=== PATIENT | female | born 1975 | race Hispanic/Latino ===

== ENCOUNTER 2018-07-09 15:29 | Emergency (ER) | payer BC, OTHER ==
[2018-07-09] MEDS ORDERED: ACETAMINOPHEN 325 MG TAB ONE (16:04)
[2018-07-09] MEDS ORDERED: SODIUM CHLORIDE 0.9% 1000ML 1,000 ML IV ONE (16:04)
[2018-07-09] MEDS ORDERED: LEVOFLOXACIN 750 MG/D5W 150 ML 150 ML ONE (16:04)
[2018-07-09 16:37] LABS: BASOPHILS % (AUTO) 0.3 % (0.0-5.0); EOSINOPHILS % (AUTO) 2.5 % (0.0-8.0); HEMATOCRIT 41.4 % (36-48); LYMPHOCYTES % (AUTO) 14.4 % (21.0-51.0); MEAN CORPUSCULAR HEMOGLOBIN 27.3 pg (27.0-33.0); MEAN CORPUSCULAR HGB CONC 33.1 g/dL (32.0-36.0); MEAN CORPUSCULAR VOLUME 82.4 fL (79-99); MONOCYTES % (AUTO) 7.2 % (3.0-13.0); NEUTROPHILS % (AUTO) 75.6 % (40.0-77.0); PLATELET COUNT (AUTO) 192 K/uL (130-400); RED BLOOD CELL COUNT(AUTO) 5.02 MIL/uL (4.00-5.50); RED CELL DISTRIBUTION WIDTH 15.3 % (11.0-15.5); WHITE BLOOD COUNT (AUTO) 11.7 K/uL (4.8-10.8)
[2018-07-09 16:58] LABS: ALBUMIN 3.4 g/dL (3.5-5.0); BILIRUBIN,TOTAL 0.5 mg/dL (0.2-1.0); CREATININE 0.8 mg/dL (0.5-1.5); INR 0.92 (0.85-1.15); PARTIAL THROMBOPLASTIN TIME 24.6 SEC (26.3-35.5); PROTHROMBIN TIME 9.7 SEC (9.6-11.6); TOTAL PROTEIN, SERUM 7.5 g/dL (6.0-8.3)
[2018-07-09] MEDS ORDERED: INSULIN HUMULIN R 100 UNIT/ML 3ML ONE (17:31)
[2018-07-09 20:04] LABS: APPEARANCE,URINE CLOUDY (CLEAR); BILIRUBIN,URINE NEGATIVE (NEGATIVE); COLOR,URINE YELLOW (YELLOW); GLUCOSE, URINE (UA) >=1000 mg/dL (NEGATIVE); KETONES,URINE 15 mg/dL (NEGATIVE); LEUKOCYTE ESTERASE ,URINE TRACE (NEGATIVE); NITRATE,URINE POSITIVE (NEGATIVE); OCCULT BLOOD,URINE LARGE (NEGATIVE); PROTEIN,URINE 30 (NEGATIVE); UROBILINOGEN,URINE 0.2 mg/dL (0.2-1.0)
[2018-07-09 20:13] LABS: RBC,URINE 26-50 /HPF (0-1)
[2018-07-09 20:14] LABS: BACTERIA,URINE Few /HPF (None Seen); SQUAMOUS EPITHELIAL CELL,UR Rare /HPF (0-2)
[2018-07-09] MEDS ORDERED: KETOROLAC TROMETHAMINE 15MG/ML ONE (20:39)
[2018-07-09 21:11] LABS: HEMOGLOBIN A1C 11.7 % (4.0-6.0)
== END 2018-07-09 21:08 | disposition home or self-care (01) ==
LOC: EDH 15:29
DX: A41.9 Sepsis, unspecified organism (principal); R73.9 Hyperglycemia, unspecified; N39.0 Urinary tract infection, site not specified; Z88.1 Allergy status to other antibiotic agents; Z88.6 Allergy status to analgesic agent; Z90.49 Acquired absence of other specified parts of digestive tract
CPT/HCPCS: 36415; 74176; 80053; 81001; 82948 ×2; 83036; 83605; 84703; 85025; 85610; 85651; 85730; 87040 ×2; 87088; 87804 ×2; 93005; 94761; 96361; 96365; 96366; 96375; 99291; J1815; J1885; J1956; J7030

== ENCOUNTER 2020-10-13 16:25 | Emergency (ER) | payer OTHER ==
[2020-10-13 18:12] LABS: BASOPHILS % (AUTO) 0.5 % (0.0-5.0); EOSINOPHILS % (AUTO) 7.7 % (0.0-8.0); HEMATOCRIT 31.4 % (36-48); LYMPHOCYTES % (AUTO) 27.7 % (21.0-51.0); MEAN CORPUSCULAR HGB CONC 27.7 g/dL (32.0-36.0); MEAN CORPUSCULAR VOLUME 68.6 fL (79-99); MONOCYTES % (AUTO) 8.7 % (3.0-13.0); NEUTROPHILS % (AUTO) 55.1 % (40.0-77.0); PLATELET COUNT (AUTO) 292 K/uL (130-400); RED BLOOD CELL COUNT(AUTO) 4.58 MIL/uL (4.00-5.50); RED CELL DISTRIBUTION WIDTH 19.6 % (11.0-15.5); WHITE BLOOD COUNT (AUTO) 7.6 K/uL (4.8-10.8)
[2020-10-13 18:24] LABS: CREATININE 0.7 mg/dL (0.5-1.5); POTASSIUM 4.1 mmol/L (3.5-5.1)
[2020-10-13 18:25] LABS: APPEARANCE,URINE CLOUDY (CLEAR); BILIRUBIN,URINE NEGATIVE (NEGATIVE); COLOR,URINE ORANGE (YELLOW); GLUCOSE, URINE (UA) NEGATIVE (NEGATIVE); KETONES,URINE NEGATIVE (NEGATIVE); LEUKOCYTE ESTERASE ,URINE NEGATIVE (NEGATIVE); NITRATE,URINE NEGATIVE (NEGATIVE); OCCULT BLOOD,URINE LARGE (NEGATIVE); PROTEIN,URINE NEGATIVE (NEGATIVE); UROBILINOGEN,URINE 0.2 mg/dL (0.2-1.0)
[2020-10-13 18:28] LABS: ALBUMIN 3.4 g/dL (3.5-5.0); BILIRUBIN,TOTAL 0.2 mg/dL (0.2-1.0); TOTAL PROTEIN, SERUM 7.3 g/dL (6.0-8.3)
[2020-10-13 18:36] LABS: RBC,URINE >100 /HPF (0-1)
[2020-10-13 18:37] LABS: BACTERIA,URINE Rare /HPF (None Seen); SQUAMOUS EPITHELIAL CELL,UR Rare /HPF (0-2)
[2020-10-13] MEDS ORDERED: KETOROLAC TROMETHAMINE 30MG/ML ONE (19:04)
[2020-10-13] MEDS ORDERED: ORPHENADRINE CITRATE 30 MG/ML ML ONE (19:04)
== END 2020-10-13 19:15 | disposition home or self-care (01) ==
LOC: EDH 16:25
DX: M62.830 Muscle spasm of back (principal); R10.11 Right upper quadrant pain; E11.9 Type 2 diabetes mellitus without complications; I10 Essential (primary) hypertension; J45.909 Unspecified asthma, uncomplicated; Z88.1 Allergy status to other antibiotic agents; Z87.891 Personal history of nicotine dependence; Z88.8 Allergy status to other drugs, medicaments and biological substances; Z90.49 Acquired absence of other specified parts of digestive tract
CPT/HCPCS: 36415; 74176; 80053; 81001; 82150; 83690; 85025; 93005; 96372; 96374; 99285; J1885; J2360

== ENCOUNTER 2020-12-17 07:25 | Emergency (ER) | payer OTHER ==
[2020-12-17] MEDS ORDERED: ALBUTEROL INHALER 90MCG/INH IH ONE (07:44)
[2020-12-17 08:03] LABS: BASOPHILS % (AUTO) 0.5 % (0.0-5.0); EOSINOPHILS % (AUTO) 19.9 % (0.0-8.0); LYMPHOCYTES % (AUTO) 22.6 % (21.0-51.0); MEAN CORPUSCULAR HEMOGLOBIN 20.7 pg (27.0-33.0); MEAN CORPUSCULAR HGB CONC 28.3 g/dL (32.0-36.0); MEAN CORPUSCULAR VOLUME 73.2 fL (79-99); NEUTROPHILS % (AUTO) 48.7 % (40.0-77.0); PLATELET COUNT (AUTO) 289 K/uL (130-400); RED BLOOD CELL COUNT(AUTO) 4.78 MIL/uL (4.00-5.50); RED CELL DISTRIBUTION WIDTH 19.3 % (11.0-15.5); WHITE BLOOD COUNT (AUTO) 7.8 K/uL (4.8-10.8)
[2020-12-17 08:15] LABS: CREATININE 0.7 mg/dL (0.5-1.5); POTASSIUM 4.1 mmol/L (3.5-5.1)
[2020-12-17] MEDS ORDERED: SOLU-MEDROL 125MG VIAL ONE (08:34)
[2020-12-17] MEDS ORDERED: GUAIFENESIN-CODEINE 5 ML SYRUP ONE (08:34)
== END 2020-12-17 09:45 | disposition home or self-care (01) ==
LOC: EDH 07:25
DX: J45.901 Unspecified asthma with (acute) exacerbation (principal); B34.9 Viral infection, unspecified; D64.9 Anemia, unspecified; Z20.828 Contact with and (suspected) exposure to other viral communicable diseases; E11.9 Type 2 diabetes mellitus without complications; I10 Essential (primary) hypertension; Z90.49 Acquired absence of other specified parts of digestive tract; Z88.0 Allergy status to penicillin; Z88.1 Allergy status to other antibiotic agents; Z88.5 Allergy status to narcotic agent
CPT/HCPCS: 36415; 71045; 80048; 84484; 85025; 87426; 87804 ×2; 93005; 96374; 99285; J2930; U0003

== ENCOUNTER 2021-06-14 18:32 | Emergency (ER) | payer OTHER, SELFPAY ==
[~2021-06-14] VITALS: Ht 160 cm; Wt 117.9 kg
[2021-06-14 19:15] LABS: BASOPHILS % (AUTO) 0.1 % (0.0-5.0); HEMATOCRIT 37.3 % (36-48); LYMPHOCYTES % (AUTO) 8.8 % (21.0-51.0); MEAN CORPUSCULAR HEMOGLOBIN 23.2 pg (27.0-33.0); MEAN CORPUSCULAR HGB CONC 29.8 g/dL (32.0-36.0); MEAN CORPUSCULAR VOLUME 77.9 fL (79-99); MONOCYTES % (AUTO) 7.9 % (3.0-13.0); NEUTROPHILS % (AUTO) 82.8 % (40.0-77.0); PLATELET COUNT (AUTO) 238 K/uL (130-400); RED BLOOD CELL COUNT(AUTO) 4.79 MIL/uL (4.00-5.50); RED CELL DISTRIBUTION WIDTH 17.5 % (11.0-15.5)
[2021-06-14 19:27] LABS: CREATININE 0.9 mg/dL (0.5-1.5); POTASSIUM 4.5 mmol/L (3.5-5.1)
[2021-06-14 19:30] LABS: INR 0.92 (0.85-1.15); PROTHROMBIN TIME 10.1 SEC (9.6-11.6)
[2021-06-14 19:31] LABS: PARTIAL THROMBOPLASTIN TIME 23.2 SEC (26.3-35.5)
[2021-06-14 19:36] LABS: ALBUMIN 3.3 g/dL (3.5-5.0); BILIRUBIN,TOTAL 0.2 mg/dL (0.2-1.0); TOTAL PROTEIN, SERUM 7.2 g/dL (6.0-8.3)
[2021-06-14 19:39] LABS: B-TYPE NATRIURETIC PEPTIDE 15 pg/mL (0-100)
[2021-06-15 02:26] VITALS: BP 176/86
[2021-06-15] MEDS ORDERED: AZITHROMYCIN 500MG VIAL IVPB ONE (03:30)
[2021-06-15] MEDS ORDERED: ASPIRIN 325MG TAB PO ONE (03:30)
[2021-06-15] MEDS ORDERED: 0.9%NACL 1000ML 1,000 ML IV ONE ×2 (03:30)
[2021-06-15] MEDS ORDERED: 0.9% NACL 250ML IVPB ONE (03:30)
[2021-06-15] MEDS ORDERED: LEVOFLOXACIN 500 MG TABLET PO SCH (03:30)
[2021-06-15] MEDS ORDERED: KETOROLAC 30MG VIAL (30MG/ML) IV ONE (03:30)
[2021-06-15 03:32] LABS: ABG BASE EXCESS 2.2 mmol/L (-2.0-3.0); ABG HCO3 25.5 mmol/L (21.0-28.0); ABG OXYGEN SATURATION 94.8 % (95.0-99.0); ABG PCO2 36 mmHg (32-45)
[2021-06-15 03:38] LABS: CRP QUANTITATIVE 67.3 mg/L (0.00-9.0); MAGNESIUM 1.7 mg/dL (1.80-2.40)
[2021-06-15 03:42] LABS: INR 0.92 (0.85-1.15); PROTHROMBIN TIME 10.1 SEC (9.6-11.6)
[2021-06-15 03:44] LABS: PARTIAL THROMBOPLASTIN TIME 23.7 SEC (26.3-35.5)
[2021-06-15] MEDS ORDERED: AZITHROMYCIN 500MG+NS 250ML 250 ML IV ONE ×2 (04:04→04:13)
[2021-06-15] MEDS ORDERED: MAGNESIUM 2GM PREMIX 50ML 50 ML IV SCH (04:30)
[2021-06-15] MEDS ORDERED: MONT10TA21 PO (06:18)
[2021-06-15] MEDS ORDERED: IPRA4AER IH (06:18)
[2021-06-15] MEDS ORDERED: BUDE180H IH (06:18)
[2021-06-15 06:30] VITALS: BP 157/88
[2021-06-15 07:02] VITALS: BP 136/80
[2021-06-15 07:03] VITALS: BP 161/90
[2021-06-15 07:04] VITALS: BP 156/96
== END 2021-06-15 07:11 | disposition home or self-care (01) ==
LOC: EDH 18:32
DX: U07.1 COVID-19 (principal); R09.02 Hypoxemia; E11.65 Type 2 diabetes mellitus with hyperglycemia; E66.01 Morbid (severe) obesity due to excess calories; I10 Essential (primary) hypertension; Z79.1 Long term (current) use of non-steroidal anti-inflammatories (NSAID); Z79.82 Long term (current) use of aspirin; Z79.84 Long term (current) use of oral hypoglycemic drugs; Z88.0 Allergy status to penicillin; Z88.1 Allergy status to other antibiotic agents; Z88.5 Allergy status to narcotic agent; Z90.49 Acquired absence of other specified parts of digestive tract; Z68.42 Body mass index [BMI] 45.0-49.9, adult
CPT/HCPCS: 36415 ×2; 71045; 80053; 82550; 82803; 83605; 83735; 83880; 84484 ×2; 85025; 85378; 85610 ×2; 85730 ×2; 86140; 87040 ×2; 87426; 87804 ×2; 87880; 93005; 96365; 96366; 96367; 96374; 99285; J0456 ×2; J1885; J3475

== ENCOUNTER 2022-09-29 10:16 | Emergency (ER) | payer OTHER ==
[~2022-09-29] VITALS: Ht 160 cm; Wt 117.9 kg
[~2022-09-29 10:16] MED LIST: BUDE180H IH; IPRA4AER IH; MONT10TA21 PO
[2022-09-29 10:49] LABS: BASOPHILS % (AUTO) 0.3 % (0.0-5.0); EOSINOPHILS % (AUTO) 0.5 % (0.0-8.0); HEMATOCRIT 36.7 % (36-48); LYMPHOCYTES % (AUTO) 8.9 % (21.0-51.0); MEAN CORPUSCULAR HEMOGLOBIN 25.3 pg (27.0-33.0); MEAN CORPUSCULAR HGB CONC 30.8 g/dL (32.0-36.0); MEAN CORPUSCULAR VOLUME 82.3 fL (79-99); MONOCYTES % (AUTO) 7.2 % (3.0-13.0); NEUTROPHILS % (AUTO) 82.6 % (40.0-77.0); PLATELET COUNT (AUTO) 185 K/uL (130-400); RED BLOOD CELL COUNT(AUTO) 4.46 MIL/uL (4.00-5.50); RED CELL DISTRIBUTION WIDTH 14.4 % (11.0-15.5); WHITE BLOOD COUNT (AUTO) 11.1 K/uL (4.8-10.8)
[2022-09-29 10:54] LABS: APPEARANCE,URINE CLOUDY (CLEAR); BILIRUBIN,URINE NEGATIVE (NEGATIVE); COLOR,URINE YELLOW (YELLOW); GLUCOSE, URINE (UA) 50 mg/dL (NEGATIVE); KETONES,URINE 5 mg/dL (NEGATIVE); LEUKOCYTE ESTERASE ,URINE NEGATIVE Leu/uL (NEGATIVE); NITRATE,URINE NEGATIVE (NEGATIVE); OCCULT BLOOD,URINE NEGATIVE (NEGATIVE); PH,URINE 5.5 (5.0-8.0); PROTEIN,URINE 30 mg/dL (NEGATIVE); UROBILINOGEN,URINE 0.2 mg/dL (0.2-1.0)
[2022-09-29 10:57] LABS: CREATININE 0.7 mg/dL (0.5-1.5); POTASSIUM 3.9 mmol/L (3.5-5.1)
[2022-09-29 11:01] LABS: HCG,QUALITATIVE URINE NEGATIVE (NEGATIVE)
[2022-09-29 11:03] LABS: ALBUMIN 3.2 g/dL (3.5-5.0); TOTAL PROTEIN, SERUM 7.5 g/dL (6.0-8.3)
[2022-09-29 11:06] LABS: BACTERIA,URINE FEW /HPF (None Seen); MUCUS,URINE RARE LPF (None Seen); SQUAMOUS EPITHELIAL CELL,UR FEW /HPF (0-2)
[2022-09-29] MEDS ORDERED: MORPHINE 4 MG SYG IVP ONE (12:30)
[2022-09-29] MEDS ORDERED: ONDANSETRON 4MG INJ IVP ONE (12:30)
[2022-09-29 15:13] VITALS: BP 129/77
[2022-09-29] MEDS ORDERED: LEVOFLOXACIN 500 MG/D5W 100 ML 100 ML IV SCH (16:00)
[2022-09-29] MEDS ORDERED: DIPH1TAB PO (17:27)
[2022-09-29] MEDS ORDERED: ONDA4TAB10 PO (17:27)
[2022-09-29] MEDS ORDERED: CIPR-278 PO (17:27)
== END 2022-09-29 17:54 | disposition home or self-care (01) ==
LOC: EDH 10:16
DX: K52.9 Noninfective gastroenteritis and colitis, unspecified (principal); E11.9 Type 2 diabetes mellitus without complications; E66.01 Morbid (severe) obesity due to excess calories; Z68.42 Body mass index [BMI] 45.0-49.9, adult; I10 Essential (primary) hypertension; Z90.49 Acquired absence of other specified parts of digestive tract; Z98.890 Other specified postprocedural states; Z88.0 Allergy status to penicillin; Z88.1 Allergy status to other antibiotic agents; Z88.8 Allergy status to other drugs, medicaments and biological substances; Z79.899 Other long term (current) drug therapy
CPT/HCPCS: 99284; 74176; 96365; 96375; 80053; 83690; 85025; 87040 ×2; 87077; 87186; 82948; 83605; 81001; 81025; 36415; J1956; J2405; J2270

== ENCOUNTER 2023-10-08 07:19 | Emergency (ER) | payer BC, OTHER ==
[~2023-10-08] VITALS: Ht 160 cm; Wt 102.1 kg
[~2023-10-08 07:19] MED LIST changes: +CIPR-278 PO; +DIPH1TAB PO; +MONT-46 PO; -MONT10TA21 PO; +ONDA4TAB10 PO
[2023-10-08] MEDS ORDERED: KETOROLAC 60 MG VIAL (30MG/ML) IM ONE (08:00)
[2023-10-08] MEDS: HYDROCODONE/ACETAMINOPHEN 5/325 MG TAB PO ONE ×2 (08:02→08:07)
[2023-10-08] MEDS ORDERED: ACET-2079 PO (09:03)
[2023-10-08] MEDS ORDERED: IBUP-2070 PO (09:03)
[2023-10-08 09:25] VITALS: BP 16/89; PULSE 78; RESP 18; O2SAT 98
== END 2023-10-08 09:28 | disposition home or self-care (01) ==
LOC: EDH 07:19
DX: R59.0 Localized enlarged lymph nodes (principal); M79.621 Pain in right upper arm; I10 Essential (primary) hypertension; E11.9 Type 2 diabetes mellitus without complications; Z88.0 Allergy status to penicillin; Z88.1 Allergy status to other antibiotic agents; Z88.5 Allergy status to narcotic agent; Z88.8 Allergy status to other drugs, medicaments and biological substances; Z90.49 Acquired absence of other specified parts of digestive tract
CPT/HCPCS: 99284; 76882; 96372; J1885